=== PATIENT | male | born 1975 | race Hispanic/Latino ===

== ENCOUNTER 2018-08-04 09:40 | Observation (INO) | payer OTHER ==
[2018-08-04 09:50] VITALS: BMI 23.3
[2018-08-04] MEDS ORDERED: Sodium Chloride 0.9% 1,000 ML IV STA (10:00)
[2018-08-04 10:18] LABS: BASO % 1.1 % (0.0-2.0); EOS # 0.1 K/uL (0.0-0.7); EOS % 2.4 % (0.0-4.0); HEMOGLOBIN 14.7 g/dL (12.0-18.0); LYMPH % 26.2 % (20.0-40.0); MEAN CELL VOLUME 89.8 fL (80.0-94.0); MEAN CORPUSCULAR HEMOGLOBIN 31.2 pg (27.0-31.0); MEAN CORPUSCULAR HGB CONC 34.8 g/dL (33.0-37.0); MEAN PLATELET VOLUME 9.2 fL (7.2-11.7); MONO # 0.4 K/uL (0.0-0.8); MONO % 11.4 % (0.0-10.0); NEUT # 2.3 K/uL (1.8-7.0); NEUT % 58.9 % (50.0-75.0); NRBC % 0.1 % (0.0-2.0); RBC 4.7 Mil/uL (4.40-5.90); RED CELL DISTRIBUTION WIDTH 13.4 % (11.5-14.5); WHITE BLOOD COUNT 3.9 K/uL (4.8-10.8)
[2018-08-04] MEDS ORDERED: Sodium Chloride 0.9% 1,000 ML ONE (10:22)
[2018-08-04 10:25] LABS: INR 1.1; PARTIAL THROMBOPLASTIN TIME 33 SECONDS (21-34); PROTHROMBIN TIME 11.7 SECONDS (9.7-12.2)
[2018-08-04 10:27] LABS: URINE BILIRUBIN NEGATIVE (NEGATIVE); URINE BLOOD NEGATIVE (NEGATIVE); URINE CLARITY Clear (Clear); URINE COLOR Yellow (YELLOW); URINE GLUCOSE (UA) NORMAL (Normal); URINE LEUKOCYTE ESTERASE NEG Leu/uL (Negative); URINE PROTEIN NEGATIVE (NEGATIVE)
[2018-08-04 10:41] LABS: D DIMER < 200 ng/mlDDU (0-243)
[2018-08-04 10:44] LABS: ALB/GLOB RATIO 1.7 (1.0-2.1); ALBUMIN 4.6 g/dL (3.5-5.0); ALT/SGPT 42 U/L (21-72); AST/SGOT 49 U/L (17-59); BLOOD UREA NITROGEN 22 mg/dL (9-20); GFR NON-AFRICAN AMERICAN > 60; LIPASE 36 U/L (23-300)
[2018-08-04 10:46] LABS: CK-MB 3.06 ng/mL (0.0-3.38)
[2018-08-04 11:00] LABS: BARBITURATES, UR NEGATIVE (NEGATIVE); BENZODIAZEPINES, UR NEGATIVE (NEGATIVE); OPIATES, UR NEGATIVE (NEGATIVE); PHENCYCLIDINE, UR NEGATIVE (NEGATIVE)
--- NOTE | 2018-08-04 11:03 | RAD ---
HISTORY: weakness COMPARISON: None available. TECHNIQUE: Chest, one view. FINDINGS: LUNGS: No focal consolidation. Please note that chest x-ray has limited sensitivity for the detection of pulmonary masses. PLEURA: No significant pleural effusion identified. No definite pneumothorax . CARDIOVASCULAR: The cardiomediastinal silhouette appears within normal limits of size. No significant atherosclerotic calcification present. OSSEOUS STRUCTURES: No acute osseous abnormality identified. VISUALIZED UPPER ABDOMEN: Unremarkable. OTHER FINDINGS: None. IMPRESSION: No focal consolidation.
--- NOTE | 2018-08-04 12:36 | C.PDOC ---
History Of Present Illness 42 year old male present to ED with complaint of experiencing hot flashes, Hot sensation in the chest area, lightheadedness, weakness, and shakiness while he was working today. 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 He had no PMHx and takes no medications. He states that he currently feels better, but still feels very tired. Patient denies headache, dizziness, chest pain, SOB, abdominal pain, vomiting, and diarrhea. Time Seen by Provider: 08/04/18 09:52 Chief Complaint (Nursing): Medical Clearance History Per: Patient History/Exam Limitations: no limitations Onset/Duration Of Symptoms: Hrs (4) Current Symptoms Are (Timing): Better Past Medical History Reviewed: Historical Data, Nursing Documentation, Vital Signs Vital Signs: Last Vital Signs Temp 98.4 F 08/04/18 12:21 Pulse 68 08/04/18 12:21 Resp 18 08/04/18 12:21 BP 127/75 08/04/18 12:21 Pulse Ox 99 08/04/18 12:21 - Medical History PMH: No Chronic Diseases Surgical History: No Surg Hx Family History: States: Unknown Family Hx - Social History Hx Alcohol Use: No Hx Substance Use: No - Immunization History Hx Tetanus Toxoid Vaccination: No Hx Influenza Vaccination: No Hx Pneumococcal Vaccination: No Review Of Systems Constitutional: Positive for: Weakness, Other (tiredness, shakiness). Negative for: Fever, Chills Cardiovascular: Positive for: Light Headedness. Negative for: Chest Pain Respiratory: Negative for: Shortness of Breath Gastrointestinal: Negative for: Vomiting, Abdominal Pain, Diarrhea Physical Exam - Physical Exam Appears: Well, Non-toxic, No Acute Distress Skin: Normal Color, Warm, Dry Head: Atraumatic, Normacephalic Neck: Normal ROM, Supple Chest: Symmetrical, No Deformity Cardiovascular: Rhythm Regular, No Murmur Respiratory: No Accessory Muscle Use, No Rales, No Rhonchi, No Wheezing Gastrointestinal/Abdominal: Soft, No Tenderness Extremity: Capillary Refill (<2 seconds) Neurological/Psych: Oriented x3, Normal Speech, Normal Cognition ED Course And Treatment - Laboratory Results Result Diagrams: 08/04/18 10:12 08/04/18 10:12 Lab Results: PT 11.7 SECONDS (9.7-12.2) 08/04/18 10:12 INR 1.1 08/04/18 10:12 APTT 33 SECONDS (21-34) 08/04/18 10:12 D-Dimer, Quantitative < 200 ng/mlDDU (0-243) 08/04/18 10:12 Troponin I < 0.0120 ng/mL (0.00-0.120) 08/04/18 10:12 Total Bilirubin 0.9 mg/dL (0.2-1.3) 08/04/18 10:12 AST 49 U/L (17-59) 08/04/18 10:12 ALT 42 U/L (21-72) 08/04/18 10:12 Alkaline Phosphatase 88 U/L (38-126) 08/04/18 10:12 Total Protein 7.4 g/dL (6.3-8.3) 08/04/18 10:12 Albumin 4.6 g/dL (3.5-5.0) 08/04/18 10:12 Globulin 2.8 gm/dL (2.2-3.9) 08/04/18 10:12 Albumin/Globulin Ratio 1.7 (1.0-2.1) 08/04/18 10:12 Lipase 36 U/L (23-300) 08/04/18 10:12 Urine Color Yellow (YELLOW) 08/04/18 10:17 Urine Clarity Clear (Clear) 08/04/18 10:17 Urine pH 6.0 (5.0-8.0) 08/04/18 10:17 Ur Specific [place] 1.014 (1.003-1.030) 08/04/18 10:17 Urine Protein Negative mg/dL (NEGATIVE) 08/04/18 10:17 Urine Glucose (UA) Normal mg/dL (Normal) 08/04/18 10:17 Urine Ketones Negative mg/dL (NEGATIVE) 08/04/18 10:17 Urine Blood Negative (NEGATIVE) 08/04/18 10:17 Urine Nitrate Negative (NEGATIVE) 08/04/18 10:17 Urine Bilirubin Negative (NEGATIVE) 08/04/18 10:17 Urine Urobilinogen 2.0 mg/dL (0.2-1.0) 08/04/18 10:17 Ur Leukocyte Esterase Neg [place]/uL (Negative) 08/04/18 10:17 Urine WBC (Auto) < 1 /hpf (0-5) 08/04/18 10:17 Urine RBC (Auto) 1 /hpf (0-3) 08/04/18 10:17 ECG: Interpreted By Me, Viewed By Me ECG Rhythm: Sinus Rhythm ECG Interpretation: Normal, No Acute Changes Rate From EC O2 Sat by Pulse Oximetry: 99 (in RA) - Other Rad CXR X-Ray: Interpreted by Me, Viewed By Me Interpretation: Accession No. : [id number]. Patient Name / ID : KHANG MONTELONGO / [id number]. Exam Date : 08/04/2018 10:34:29 ( Approved ). Study Comment : Sex / Age : M / 42Y. Creator : Berenice Ray MD. Dictator : Berenice Ray MD. Wrapper Stripper : Ict Development Manager : Berenice Ray MD. Approver2 : Report Date : 08/04/2018 10:59:37. My Comment : . HISTORY: weakness. COMPARISON: None available. TECHNIQUE: Chest, one view. FINDINGS: LUNGS: No focal consolidation. Please note that chest x-ray has limited sensitivity for the detection of pulmonary masses. PLEURA: No significant pleural effusion identified. No definite pneumothorax . CARDIOVASCULAR: The cardiomediastinal silhouette appears within normal limits of size. No significant atherosclerotic calcification present. OSSEOUS STRUCTURES: No acute osseous abnormality identified. VISUALIZED UPPER ABDOMEN: Unremarkable. OTHER FINDINGS: None. IMPRESSION: No focal consolidation. Progress Note: EKG and CXR ordered for patient. Labs orderd with cardiac enzymes, d-dimer, and UA. Patient given IV fluids. - Physician Consult Information Physician Contacted: Vaughn Au Outcome Of Conversation: Accepted to [facility] for observation Disposition - Disposition Disposition: HOSPITALIZED Disposition Time: 14:27 Condition: FAIR - Clinical Impression Clinical Impression: Near syncope - PA / SALON COORDINATOR / Resident Statement / has reviewed & agrees with the documentation as recorded. (Alyssa Cooper) - Scribe Statement The provider has reviewed the documentation as recorded by the Scribe (Alyssa Cooper) All medical record entries made by the Scribe were at my direction and personally dictated by me. I have reviewed the chart and agree that the record accurately reflects my personal performance of the history, physical exam, medical decision making, and the department course for this patient. I have also personally directed, reviewed, and agree with the discharge instructions and disposition. Decision To Admit - Pt Status Changed To: Hospital Disposition Of: Observation - . Bed Request Type: Telemetry Admitting Physician: Vaughn Au Patient Diagnosis: Near syncope
--- NOTE | 2018-08-04 14:47 | CP.PCM.HP ---
History of Present Illness - History of Present Illness History of Present Illness: COMPREHENSIVE HISTORY & PHYSICAL EXAM HPI Early this morning while the patient had at work suddenly felt lightheaded and could not stand patient continued his work and felt more lightheaded and diaphoretic no chest pain. Patient became extremely weak and sweaty. Patient presented [facility] Room was evaluated and admitted Patient had a similar episode of lesser intensity about 2 years ago which he attributed to stress Currently patient has increased stress at work Patient has no previous medical history of hypertension diabetes stroke and [place] or cancer. PAST HIST. PERSONAL HIST: Smoking. N Alcohol. N Allergy N Travel_- . FAMILY HIST : ROS : Constitutional: Negative for weight change, chills, night sweats, fatigue and usage of assist device. Eyes: Negative for redness, swelling, itching, discharge, vision changes, blurry vision, double vision, glaucoma, cataracts, Ears: Negative for hearing loss, ringing, , tinnitus, vertigo Nose: Negative for rhinorrhea, stuffiness, sniffing, itching, postnasal drip, discoloration, nasal congestion and epistaxis. Throat: Negative for throat clearing, sore throat, hoarseness, difficulty swallowing and difficulty speaking. Respiratory: Negative for cough, chest tightness, sputum or phlegm, chronic cough, hemoptysis, wheezing, snoring at night, pleuritic chest pain and daytime somnolence. Cardiovascular: Negative for chest pain, palpitations, orthopnea, PND, Edema of legs, leg cramps, angina, claudication, , irregular heartbeat, Neurology: Negative for irritability, muscle weakness, numbness and tingling, seizures, tremors, migraines, slurred speech, syncope, memory loss, mood changes, recurrent headaches Gastrointestinal: Negative for difficulty swallowing, diarrhea, constipation, black stools, rectal bleeding, nausea, flatulence, reflux, poor appetite, changes in bowel habits, abdominal pain Genitourinary: Negative for frequent urination, hematuria, discharge, incontinence, urinary retention, frequent UTI, Psychiatric: Negative for depression, anxiety/panic, suicidal tendencies, Musculoskeletal: Negative for swollen joints, back pain, , neck pain, morning stiffness of joints, . Skin: Negative for rash, ulcers, itching, dry skin and pigmented lesions. P/E: Constitutional: Appears stated age and in no apparent distress. Head: Normocephalic. Ears: External ear canals patent without inflammation. Tympanic membranes intact with normal light reflex and landmark. Eyes: Pupils are central, bilaterally equal, symmetrical and reacts to light with normal movements and no icterus or pallor. Nose: External nares are patent. Mucosa is pink Mouth-Throat: Good general appearance and condition. No post-pharyngeal/oropharyngeal erythema and tonsillar hypertrophy. Good dental hygiene. Neck-Lymphatic: Neck is supple with normal ROM, no thyromegaly, lymph nodes or masses. JVD is normal with no carotid bruit. Lungs: Clear to percussion and auscultation with bilateral normal air entry. Cardiovascular: S1 and S2 are normal with no murmurs, gallops and rub. GI Exam: No hepatomegaly. Abdomen is soft and non-tender. No Organomegaly , masses or hernias are evident and bowel sounds are normal and active. Neurology: Higher function and all cranial nerves intact, with no gross motor or sensory deficit. Superficial and deep reflexes are normal with downwards planters. No cerebellar deficit with normal gait. Musculoskeletal: No tender spots with normal curvature of the spine with no swelling or restricted ROM of the small and large joints. Extremities: Homans sign absent. Intact pulses with no pitting edema, calf tenderness or skin color changes. Skin: No rash, eruptions or abnormal skin pigmentation LAB/RADIOLOGY: ASSESMENT : Near syncopal episode rule out vasovagal rule out seizure disorder Possible cardiac arrhythmias Plan Neuro and cardiac workup Past Patient History - Past Social History Smoking Status: Never Smoked - HEMATOLOGICAL/ONCOLOGICAL Other/Comment: hx of [place] virus - PSYCHIATRIC Hx Substance Use: No - SURGICAL HISTORY Hx Surgeries: Yes Hx Orthopedic Surgery: Yes (left knee repair- meniscus) Meds Allergies/Adverse Reactions: Allergies Allergy/AdvReac Type Severity Reaction Status Date / Time No Known Allergies Allergy Verified 08/04/18 09:49 Results - Vital Signs Recent Vital Signs: Last Vital Signs Temp 98.4 F 08/04/18 12:21 Pulse 68 08/04/18 12:21 Resp 18 08/04/18 12:21 BP 127/75 08/04/18 12:21 Pulse Ox 99 08/04/18 14:28 - Labs Result Diagrams: 08/04/18 10:12 08/04/18 10:12 Labs: Laboratory Results - last 24 hr 08/04/18 08/04/18 08/04/18 09:52 10:12 10:12 WBC 3.9 L RBC 4.70 Hgb 14.7 Hct 42.2 MCV 89.8 MCH 31.2 H MCHC 34.8 RDW 13.4 Plt Count 189 MPV 9.2 Neut % (Auto) 58.9 Lymph % (Auto) 26.2 [place] % (Auto) 11.4 H Eos % (Auto) 2.4 Baso % (Auto) 1.1 Neut # (Auto) 2.3 Lymph # (Auto) 1.0 [place] # (Auto) 0.4 Eos # (Auto) 0.1 Baso # (Auto) 0.0 PT 11.7 INR 1.1 APTT 33 D-Dimer, Quantitative < 200 Sodium Potassium Chloride Carbon Dioxide Anion Gap BUN Creatinine Est GFR ( Amer) Est GFR (Non-Af Amer) POC Glucose (mg/dL) 112 H Random Glucose Calcium Total Bilirubin AST ALT Alkaline Phosphatase Total Creatine Kinase CK-MB (Mass) Troponin I Total Protein Albumin Globulin Albumin/Globulin Ratio Lipase Urine Color Urine Clarity Urine pH Ur Specific [place] Urine Protein Urine Glucose (UA) Urine Ketones Urine Blood Urine Nitrate Urine Bilirubin Urine Urobilinogen Ur Leukocyte Esterase Urine WBC (Auto) Urine RBC (Auto) Urine Opiates Screen Urine Methadone Screen Ur Barbiturates Screen Ur Phencyclidine Scrn Ur Amphetamines Screen U Benzodiazepines Scrn U Oth Cocaine Metabols U Cannabinoids Screen 08/04/18 08/04/18 08/04/18 10:12 10:17 10:17 WBC RBC Hgb Hct MCV MCH MCHC RDW Plt Count MPV Neut % (Auto) Lymph % (Auto) [place] % (Auto) Eos % (Auto) Baso % (Auto) Neut # (Auto) Lymph # (Auto) [place] # (Auto) Eos # (Auto) Baso # (Auto) PT INR APTT D-Dimer, Quantitative Sodium 135 Potassium 4.0 Chloride 101 Carbon Dioxide 27 Anion Gap 12 BUN 22 H Creatinine 0.9 Est GFR ( Amer) > 60 Est GFR (Non-Af Amer) > 60 POC Glucose (mg/dL) Random Glucose 100 Calcium 9.0 Total Bilirubin 0.9 AST 49 ALT 42 Alkaline Phosphatase 88 Total Creatine Kinase 221 H CK-MB (Mass) 3.06 Troponin I < 0.0120 Total Protein 7.4 Albumin 4.6 Globulin 2.8 Albumin/Globulin Ratio 1.7 Lipase 36 Urine Color Yellow Urine Clarity Clear Urine pH 6.0 Ur Specific [place] 1.014 Urine Protein Negative Urine Glucose (UA) Normal Urine Ketones Negative Urine Blood Negative Urine Nitrate Negative Urine Bilirubin Negative Urine Urobilinogen 2.0 Ur Leukocyte Esterase Neg Urine WBC (Auto) < 1 Urine RBC (Auto) 1 Urine Opiates Screen Negative Urine Methadone Screen Negative Ur Barbiturates Screen Negative Ur Phencyclidine Scrn Negative Ur Amphetamines Screen Negative U Benzodiazepines Scrn Negative U Oth Cocaine Metabols Negative U Cannabinoids Screen Negative
[2018-08-04 17:03] VITALS: RESP 20
[2018-08-04 19:48] LABS: CK-MB 2.47 ng/mL (0.0-3.38)
[2018-08-05 04:15] LABS: CK-MB 2.26 ng/mL (0.0-3.38)
[2018-08-05 08:35] LABS: CK-MB 2.08 ng/mL (0.0-3.38)
--- NOTE | 2018-08-05 11:23 | CP.PCM.PN ---
Subjective - Date & Time of Evaluation Date of Evaluation: 08/05/18 Time of Evaluation: 11:22 - Subjective Subjective: FEELS WEAK VS STABLE NO POSTURAL DROP NEURO W/P Objective - Vital Signs/Intake and Output Vital Signs (last 24 hours): Temp Pulse Resp BP Pulse Ox 97.4 F L 78 20 126/81 98 08/05/18 07:00 08/05/18 08:04 08/05/18 07:00 08/05/18 07:00 08/05/18 07:00 - Medications Medications: Current Medications Pneumococcal Polyvalent Vaccine (Pneumovax 23 Vaccine) 0.5 ml IM .ONCE ONE Stop: 08/07/18 10:01 - Labs Labs: 08/04/18 10:12 08/04/18 10:12 PT 11.7 SECONDS (9.7-12.2) 08/04/18 10:12 INR 1.1 08/04/18 10:12 APTT 33 SECONDS (21-34) 08/04/18 10:12
[2018-08-05] MEDS ORDERED: Iodixanol 320 MG/ML 100 ML BOTTLE IV ONE (11:50)
--- NOTE | 2018-08-05 12:28 | VASCLAB ---
Date of service: 08/05/2018 PROCEDURE: Carotid Duplex Exam. HISTORY: SYNCOPE COMPARISON: None available. TECHNIQUE: Grayscale and duplex Doppler evaluation of the cervical carotid and vertebral arteries were performed. The common carotid, carotid bifurcations and cervical Internal Carotid Artery (ICA) and proximal External Carotid Artery (ECA) were evaluated. The vertebral arteries were evaluated for gross patency and flow direction. Report prepared by Chidi Love, T FINDINGS: RIGHT CAROTID ARTERIES: 1. Common Carotid Artery: No significant focal plaque formation of the right common carotid artery. Maximum Peak Systolic velocity: 110.1 cm/sec: End-diastolic velocity 31.3 cm/sec. 2. Carotid Bifurcation: No significant focal plaque formation. Maximum Peak Systolic velocity: 82.5 cm/sec: End-diastolic velocity 19.5 cm/sec. 3. Internal Carotid Artery: Plaque description: Not applicable 3.1. Proximal Segment: Peak systolic velocity 94.3 cm/sec: End-diastolic velocity 31.3 cm/sec - % stenosis 3.2. Middle Segment: Peak systolic velocity 96.4 cm/sec: End-diastolic velocity 40.7 cm/sec - % stenosis 3.3. Distal Segment: Peak systolic velocity 70.2 cm/sec: End-diastolic velocity 32.4 cm/sec - % stenosis 4. External Carotid Artery: No significant focal plaque formation. Peak systolic velocity 80.5 cm/sec 5. ICA/CCA Ratio: 0.9 LEFT CAROTID ARTERIES: 1. Common Carotid Artery: No significant focal plaque formation of the left common carotid artery. Maximum Peak Systolic velocity: 120.5 cm/sec: End-diastolic velocity 31.7 cm/sec. 2. Carotid Bifurcation: No significant focal plaque formation. Maximum Peak Systolic velocity: 97.9 cm/sec: End-diastolic velocity 26.8 cm/sec. 3. Internal Carotid Artery: Plaque description: Not applicable 3.1. Proximal Segment: Peak systolic velocity 67.3 cm/sec: End-diastolic velocity 24.0 cm/sec - % stenosis 3.2. Middle Segment: Peak systolic velocity 76.0 cm/sec: End-diastolic velocity 31.7 cm/sec - % stenosis 3.3. Distal Segment: Peak systolic velocity 69.7 cm/sec: End-diastolic velocity 31.5 cm/sec - % stenosis 4. External Carotid Artery: No significant focal plaque formation. Peak systolic velocity 83.3 cm/sec 5. ICA/CCA Ratio: 0.8 VERTEBRAL ARTERIES: 1. Right Vertebral Artery: The right vertebral artery flow direction is antegrade. 2. Left Vertebral Artery: The left vertebral artery flow direction is antegrade. OTHER FINDINGS: 1. Right Brachial Blood pressure: mmHg. 2. Left Brachial Blood pressure: mmHg. IMPRESSION: RIGHT: Duplex scan does not suggest hemodynamically significant stenosis of the right extracranial carotid arteries. LEFT: Duplex scan does not suggest hemodynamically significant stenosis of the left extracranial carotid arteries.
--- NOTE | 2018-08-05 14:04 | CT ---
Date of service: 08/05/2018 PROCEDURE: CT HEAD WITH AND WITHOUT CONTRAST HISTORY: TIA common near syncope. August 05, 2018. Carotid ultrasound. COMPARISON: None available. TECHNIQUE: Axial computed tomography images were obtained through the head/brain with and without intravenous contrast enhancement. Contrast dose: 100 cc Visipaque 320. Radiation dose: Total exam DLP = 1965.64 mGy-cm. This CT exam was performed using one or more of the following dose reduction techniques: Automated exposure control, adjustment of the mA and/or kV according to patient size, and/or use of iterative reconstruction technique. FINDINGS: HEMORRHAGE: No intracranial hemorrhage. BRAIN: No mass, mass effect or edema. No abnormal intracranial enhancement. No atrophy or chronic microvascular ischemic changes. VENTRICLES: Unremarkable. No hydrocephalus. CALVARIUM: Unremarkable. SINUSES: Unremarkable as visualized. No significant inflammatory changes. MASTOID AIR CELLS: Unremarkable as visualized. No mastoid effusion. OTHER FINDINGS: None. IMPRESSION: Normal pre and post contrast enhanced CT of the head.
--- NOTE | 2018-08-05 14:23 | CP.PCM.CON ---
History of Present Illness - History of Present Illness History of Present Illness: Neurology Consultation Note: Consult requested by Dr. Au Mr. Ricardo is a 42-year-old man with no significant past medical history, who has had previous stress-related physical manifestations (last episode 2 years ago), who states that he had an episode of light-headedness, difficulty with standing, diaphoresis yesterday. He has had increased stress at work that includes new bosses, changes in staff and extra demands on the [employer] where he works. He states that he had 3 staff members come up to him when he was sitting down and asking for conflict resolution. The symptoms of flushing, bilateral hand and feet tingling and nausea as well as diaphoresis started when he stood up from a seated position. He sat down, calmed down, and felt better, but when he went to stand up again, the symptoms started again. He presented to the ED, and his symptoms were resolved. Review of Systems - Constitutional Constitutional: As Per HPI - EENT Eyes: absent: As Per HPI, Blind Spots, Blurred Vision, Change in Vision, De creased Night Vision, Diplopia, Discharge, Dry Eye, Exophthalmos, Floaters, Irritation, Itchy Eyes, Loss of Peripheral Vision, Pain, Photophobia, Requires Corrective Lenses, Sees Flashes, Spots in Vision, Tunnel Vision, Other Visual Disturbances, Loss of Vision, Other Ears: absent: As Per HPI, Decreased Hearing, Ear Discharge, Ear Pain, Tinnitus, Abnormal Hearing, Disequilibrium, Dizziness, Other Nose/Mouth/Throat: absent: As Per HPI, Epistaxis, Nasal Congestion, Nasal Discharge, Nasal Obstruction, Nasal Trauma, Nose Pain, Post Nasal Drip, Sinus Pain, Sinus Pressure, Bleeding Gums, Change in Voice, Dental Pain, Dry Mouth, Dysphagia, Halitosis, Hoarsness, Lip Swelling, Mouth Lesions, Mouth Pain, Odynophagia, Sore Throat, Throat Swelling, Tongue Swelling, Facial Pain, Neck Pain, Neck Mass, Other - Cardiovascular Cardiovascular: absent: As Per HPI, Acrocyanosis, Chest Pain, Chest Pain at Rest, Chest Pain with Activity, Claudication, Diaphoresis, Dyspnea, Dyspnea on Exertion, Edema, Irregular Heart Rhythm, Pain Radiating to Arm/Neck/Jaw, Leg Edema, Leg Ulcers, Lightheadedness, Orthopnea, Palpitations, Paroxysmal Nocturnal Dyspnea, Pedal Edema, Radiating Pain, Rapid Heart Rate, Slow Heart Rate, Syncope, Other - Respiratory Respiratory: absent: As Per HPI, Cough, Dyspnea, Hemoptysis, Dyspnea on Exertion, Wheezing, Snoring, Stridor, Pain on Inspiration, Chest Congestion, Excessive Mucous Production, Change in Mucous Color, Pain with Coughing, Other - Musculoskeletal Musculoskeletal: absent: As Per HPI, Abnormal Gait, Arthralgias, Atrophy, Back Pain, Deformity, Joint Swelling, Limited Range of Motion, Loss of Height, Muscle Cramps, Muscle Weakness, Myalgias, Neck Pain, Numbness, Radiating Pain into Limb, Stiffness, Tingling, Other - Neurological Neurological: absent: As Per HPI, Abnormal Gait, Abnormal Hearing, Abnormal Movements, Abnormal Speech, Behavioral Changes, Burning Sensations, Confusion, Convulsions, Disequilibrium, Dizziness, Numbness, Focal Weakness, Frequent Falls, Headaches, Lack of Coordination, Loss of Vision, Memory Loss, Paresthesias, Radicular Pain, Restless Legs, Sensory Deficit, Syncope, Tingling, Tremor, Vertigo, Weakness, Other Visual Disturbances, Other - Psychiatric Psychiatric: absent: As Per HPI, Abnormal Sleep Pattern, Anhedonia, Anxiety, Auditory Hallucinations, Behavioral Changes, Change in Appetite, Change in Libido, Confusion, Depression, Difficulty Concentrating, Hallucinations, Homicidal Ideation, Hopelessness, Irritability, Memory Loss, Mood Swings, Panic Attacks, Paranoia, Suicidal Ideation, Visual Hallucinations, Tactile Hallucinations, Other - Endocrine Endocrine: absent: As Per HPI, Change in Body Appearance, Change in Libido, Cold Intolorance, Deepening of Voice, Excessive Sweating, Fatigue, Flushing, Heat Intolorance, Increase in Ring/Shoe/Hat Size, Palpitations, Polydipsia, Polyphagia, Polyuria, Other - Hematologic/Lymphatic Hematologic: absent: As Per HPI, Easy Bleeding, Easy Bruising, Lymphadenopathy, Other Past Patient History - Past Social History Smoking Status: Never Smoked - HEMATOLOGICAL/ONCOLOGICAL Other/Comment: hx of [place] virus - PSYCHIATRIC Hx Substance Use: No - SURGICAL HISTORY Hx Surgeries: Yes Hx Orthopedic Surgery: Yes (left knee repair- meniscus) Meds Allergies/Adverse Reactions: Allergies Allergy/AdvReac Type Severity Reaction Status Date / Time No Known Allergies Allergy Verified 08/04/18 09:49 - Medications Medications: Current Medications Pneumococcal Polyvalent Vaccine (Pneumovax 23 Vaccine) 0.5 ml IM .ONCE ONE Stop: 08/07/18 10:01 Physical Exam - Constitutional Appears: Well - Head Exam Head Exam: ATRAUMATIC, NORMAL INSPECTION, NORMOCEPHALIC - Eye Exam Eye Exam: EOMI, Normal appearance, PERRL Pupil Exam: NORMAL ACCOMODATION, PERRL - ENT Exam ENT Exam: Mucous Membranes Moist, Normal Exam - Neck Exam Neck exam: Positive for: Normal Inspection - Respiratory Exam Respiratory Exam: Clear to Auscultation Bilateral, NORMAL BREATHING PATTERN - Cardiovascular Exam Cardiovascular Exam: REGULAR RHYTHM, +S1, +S2 - GI/Abdominal Exam GI & Abdominal Exam: Normal Bowel Sounds, Soft. absent: Tenderness - Extremities Exam Extremities exam: Positive for: normal inspection - Back Exam Back exam: NORMAL INSPECTION - Neurological Exam Neurological exam: Alert, CN II-XII Intact, Normal Gait, Oriented x3, Reflexes Normal - Psychiatric Exam Psychiatric exam: Normal Affect, Normal Mood - Skin Skin Exam: Dry, Intact, Normal Color, Warm Results - Vital Signs Recent Vital Signs: Last Vital Signs Temp 97.4 F L 08/05/18 07:00 Pulse 69 08/05/18 12:00 Resp 20 08/05/18 07:00 BP 126/81 08/05/18 07:00 Pulse Ox 98 08/05/18 07:00 - Labs Result Diagrams: 08/04/18 10:12 08/04/18 10:12 Labs: Laboratory Results - last 24 hr 08/04/18 08/05/18 08/05/18 19:13 03:33 07:11 Total Creatine Kinase 186 H 168 130 CK-MB (Mass) 2.47 2.26 2.08 Troponin I < 0.0120 < 0.0120 < 0.0120 Assessment & Plan (1) Panic disorder Assessment and Plan: The patient does not have any particular risk factors, has a non-focal exam and negative imaging. No further recommendations from a neurological perspective. This does not sound like a seizure to me, therefor EEG does not need to be done. The patient currently has no symptoms. Tilt table testing may be helpful and could be done as an outpatient, considering his symptoms were positional. Thank you. Status: Acute
--- NOTE | 2018-08-05 15:15 | CP.PCM.PN ---
Subjective - Date & Time of Evaluation Date of Evaluation: 08/05/18 Time of Evaluation: 15:14 - Subjective Subjective: PATIENT SEEN AND EXAMINED AT THE BEDSIDE Objective - Vital Signs/Intake and Output Vital Signs (last 24 hours): Temp Pulse Resp BP Pulse Ox 97.4 F L 69 20 126/81 98 08/05/18 07:00 08/05/18 12:00 08/05/18 07:00 08/05/18 07:00 08/05/18 07:00 - Medications Medications: Current Medications Pneumococcal Polyvalent Vaccine (Pneumovax 23 Vaccine) 0.5 ml IM .ONCE ONE Stop: 08/07/18 10:01 - Labs Labs: 08/04/18 10:12 08/04/18 10:12 PT 11.7 SECONDS (9.7-12.2) 08/04/18 10:12 INR 1.1 08/04/18 10:12 APTT 33 SECONDS (21-34) 08/04/18 10:12 Assessment and Plan - Assessment and Plan (Free Text) Assessment: FOLLOW UP WITH DR LEA IN HIS OFFICE -----CALL FOR APPOINTMENT FOLLOW UP WITH DR JONES IN HIS OFFICE ------CALL FOR APPOINTMENT ADDRESS YOUR TILT TABLE TEST YOUR VISIT CONTINUE HOME MEDICATION ACTIVITY TOLERATED CALL DR LEA OR GO TO THE EMERGENCY ROOM IF SYMPTOM RETURN OR WORSENING
[2018-08-05 15:38] VITALS: BP 115/76; PULSE 84; TEMP 97.9; O2SAT 97
--- NOTE | 2018-08-05 23:42 | CARD ---
APPROVED REPORT Date of service: 08/04/2018 EKG Measurement Heart [id number] <Conclusion> Normal sinus rhythm Normal ECG
[2018-08-07] MEDS ORDERED: Pneumococcal 23-Valent Vaccine IM ONE (10:00)
== END 2018-08-05 15:49 | disposition home or self-care (01) ==
LOC: C.ER 09:40 → C.9E 14:27 → C.5S 15:40
PROVIDERS: ADMIT Internal Medicine Cardiovascular Disease; ATTEND Internal Medicine Cardiovascular Disease
DX: F41.0 Panic disorder [episodic paroxysmal anxiety] (principal); R55 Syncope and collapse
CPT/HCPCS: 36415; 70470; 71045; 80053; 80324; 80345; 80346; 80349; 80353; 80358; 80361; 81001; 82550; 82553; 82948; 83690; 83992; 84484; 85025; 85378; 85610; 85730; 93005; 93880; 96360; 99285; G0378; J7030; Q9967